=== PATIENT | male | born 2000 | race Caucasian/White ===

== ENCOUNTER 2022-03-25 19:04 | Emergency (ER) | payer BC, SELFPAY ==
[2022-03-25 19:24] VITALS: BP 122/66; PULSE 82; RESP 18; TEMP 36.6; O2SAT 99
--- NOTE | 2022-03-25 19:44 | ED.GENADULT ---
HPI - General Adult General Chief complaint: Ear Stated complaint: ear pain History of Present Illness HPI narrative: Patient is a 21-year-old male who presents to the urgent care via POV for evaluation of bilateral ear pain that has been present for approximately 2 to 3 weeks. Additionally, patient reports sinus congestion, sinus pain, sinus pressure, left eye erythema, watery drainage from left eye, nasal congestion, and fatigue. Patient seen in urgent care 4 days ago for symptoms. He was prescribed amoxicillin and prednisone for symptoms. Symptoms are not improving prompting today's visit. Denies known exposure to sick contacts. Related Data Home Medications Medication Instructions Recorded Confirmed amoxicillin 875 mg tablet 875 tablet BID 03/25/22 03/25/22 beclomethasone dipropionate 40 1 inh inhalation DIRECTED 03/25/22 03/25/22 mcg/actuation HFA breath activated aerosol (Qvar RediHaler) olopatadine 0.6 % nasal spray 2 spray intranasal DIRECTED 03/25/22 03/25/22 (Patanase) prednisone 20 mg tablet 1 tablet DIRECTED 03/25/22 03/25/22 Allergies Allergy/AdvReac Type Severity Reaction Status Date / Time No Known Allergies Allergy Verified 03/25/22 19:35 Review of Systems Review of Systems: Denies fever, chills, sweats, severe persistent headaches, dizziness, confusion, LOC, abdominal pain, nausea, vomiting, diarrhea, cough, shortness of breath, wheezing, chest pain, heart palpitations PMFSH Comments I have reviewed and agree with the patient's past medical, surgical, social, and family hx as documented by the RN. There is no relevant family history pertinent to the presenting complaint. Exam Narrative: GENERAL: Well-appearing, well-nourished, and in no acute distress. HEAD: Normocephalic, atraumatic. No sinus tenderness or facial swelling appreciated. EYES: PERRLA and EOMI. No evidence of swelling or drainage. Left conjunctive a moderately erythematous. Right conjunctive a normal. ENT: Bilateral external ears and ear canals normal. Bilateral TMs bulging with marked erythema..No TM perforation. Nares clear, no rhinorrhea or epistaxis. Bilateral turbinates are moderately edematous. Mucous membranes moist and pink. Uvula is midline without erythema and swelling. No evidence of petechial rash, cobblestoning, lesions, ulcers, erythema, swelling, exudates, peritonsillar abscess, tenting, or drooling. Breath odor and voice normal. NECK: Supple. No Lymphadenopathy or nuchal rigidity appreciated. CHEST: Bilateral lung mauricio are clear to auscultation. No respiratory distress. No evidence of cough or pleuritic cp upon examination. HEART: Regular rate and rhythm. No murmur, gallop, or rub heard. EXTREMITIES: Normal range of motion. No edema. SKIN: Warm, dry, no rash. NEURO: No focal deficits. Alert and oriented x3. Course Course Level of Care: Express Care Visit Vital Signs Vital signs: Vital Signs Temperature 97.8 F 03/25/22 19:24 Pulse Rate 82 03/25/22 19:24 Respiratory Rate 18 03/25/22 19:24 Blood Pressure 122/66 03/25/22 19:24 Pulse Oximetry 99 03/25/22 19:24 Oxygen Delivery Room Air 03/25/22 19:24 Temperature 97.8 F 03/25/22 19:24 Pulse Rate 82 03/25/22 19:24 Respiratory Rate 18 03/25/22 19:24 Blood Pressure 122/66 03/25/22 19:24 Pulse Oximetry 99 03/25/22 19:24 Oxygen Delivery Room Air 03/25/22 19:24 Medical Decision Making Differential Diagnosis Differential Diagnosis: Allergic rhinitis, ABRS, acute viral sinusitis, strep pharyngitis, nasopharyngitis, bronchitis, pneumonia, AOM, otitis externa, viral URI, influenza, covid-19 Medical Records Medical records reviewed: Yes I reviewed the external patient's medical records. Vital Signs Vital Signs: Vital Signs Temperature 97.8 F 03/25/22 19:24 Pulse Rate 82 03/25/22 19:24 Respiratory Rate 18 03/25/22 19:24 Blood Pressure 122/66 03/25/22 19:24 Pulse Oximetry 99
== END 2022-03-25 19:57 | disposition home or self-care (01) ==
PROVIDERS: Emergency Provider Nurse Practitioner Family
DX: H66.93 Otitis media, unspecified, bilateral (principal); H10.9 Unspecified conjunctivitis; J45.909 Unspecified asthma, uncomplicated
CPT/HCPCS: 99202; G0463

== ENCOUNTER 2023-04-20 17:39 | Emergency (ER) | payer BC, SELFPAY ==
[2023-04-20 18:00] VITALS: BP 134/66; PULSE 81; RESP 18; TEMP 37; O2SAT 97
--- NOTE | 2023-04-20 18:12 | ED.UPPEXIN ---
HPI - Extremity Injury (Upper) General Chief Complaint: Extremity Injury, Upper Stated Complaint: rt arm pain Time Seen by Provider: 04/20/23 18:00 Source: patient Mode of arrival: ambulatory Limitations: no limitations History of Present Illness HPI narrative: 22-year-old male presents with bruising and swelling to right upper arm. Reports that he was wrestling with friends the other night but does not remember having any pain while wrestling. States the next day he was lifting weights and felt pain to his right upper arm. Several hours later he noticed bruising and swelling. Continue to have full range of motion to right arm but felt like over stretching muscle when extending right arm. lifted weights again the next day, was able to complete his work out but had pain during. He has full range of motion to his right arm. No numbness or tingling. Reports that his mother wanted him to be seen due to the bruising and swelling. All systems reviewed and negative except as noted above. Related Data Home Medications Medication Instructions Recorded Confirmed beclomethasone dipropionate 40 1 inh inhalation DIRECTED 03/25/22 04/20/23 mcg/actuation HFA breath activated aerosol (Qvar RediHaler) olopatadine 0.6 % nasal spray 2 spray intranasal DIRECTED 03/25/22 04/20/23 (Patanase) Allergies Allergy/AdvReac Type Severity Reaction Status Date / Time No Known Allergies Allergy Verified 04/20/23 17:57 Review of Systems Review of Systems: CONSTITUTIONAL: Denies fever, chills, or sweats. EYES: Denies visual changes, redness, or discharge. ENT: Denies rhinorrhea, congestion, sore throat, or otalgia. CARDIOVASCULAR: Denies chest pain, palpitations, or edema. RESPIRATORY: Denies cough or dyspnea. GASTROINTESTINAL: Denies abdominal pain, nausea, vomiting, or diarrhea. GENITOURINARY: Denies dysuria or hematuria. SKIN: Denies rash or itching. MUSCULOSKELETAL: Reports bruising, swelling and pain to right upper arm. NEUROLOGIC: Denies headache, numbness, or weakness. PSYCHIATRIC: Denies anxiety or depression. All other systems reviewed are negative, except as documented in HPI. [facility] Comments At time of signature, agree with nursing past medical, surgical, social and family history. There is no relevant family history pertinent to the presenting complaint. Exam Narrative: GENERAL: This is a well-nourished, well-developed patient, in no apparent distress. HEAD: normocephalic, atraumatic. EYES: PERRL. Sclera clear/white. Vision is grossly intact. EARS: External ears normal NOSE: External nose normal NECK: Neck supple, non-tender without lymphadenopathy, masses or thyromegaly. CARDIOVASCULAR: Regular rate and rhythm without murmurs, gallops, or rubs. RESPIRATORY: Clear to auscultation. Breath sounds equal bilaterally. No wheezes, rales, or rhonchi. SKIN: warm, Dry, intact with no suspicious lesions or rash, good texture and turgor. NEURO: awake, alert, and oriented to person, place and time. There were no obvious focal neurologic abnormalities. EXTREMITIES: full ROM to R upper extremity. Bruising noted to medial aspect right elbow with tenderness on palpation. mild swelling noted to medial aspect right arm with tenderness. Course Course Level of Care: Express Care Visit Vital Signs Vital signs: Vital Signs Temperature 37.0 C 04/20/23 18:00 Pulse Rate 81 04/20/23 18:00 Respiratory Rate 18 04/20/23 18:00 Blood Pressure 134/66 04/20/23 18:00 Pulse Oximetry 97 04/20/23 18:00 Oxygen Delivery Room Air 04/20/23 18:00 Temperature 37.0 C 04/20/23 18:00 Pulse Rate 81 04/20/23 18:00 Respiratory Rate 18 04/20/23 18:00 Blood Pressure 134/66 04/20/23 18:00 Pulse Oximetry 97 04/20/23 18:00 Oxygen Delivery Room Air 04/20/23 18:00 reviewed MDM - Extremity Injury (Upper) MDM Narrative Medical decision making narrative: location of bruising, pain and
== END 2023-04-20 18:14 | disposition home or self-care (01) ==
PROVIDERS: Emergency Provider Nurse Practitioner Family
DX: S46.301A Unspecified injury of muscle, fascia and tendon of triceps, right arm, initial encounter (principal); X50.3XXA Overexertion from repetitive movements, initial encounter; J45.909 Unspecified asthma, uncomplicated
CPT/HCPCS: 99212; G0463

== ENCOUNTER 2024-08-29 14:34 | Emergency (ER) | payer BC, SELFPAY ==
--- NOTE | 2024-08-29 14:38 | ED_ITS ---
HPI - URI/Sore Throat General Chief Complaint: Upper Respiratory Infection Stated Complaint: sinus congestion Time Seen by Provider: 08/29/24 14:49 Source: patient, RN notes reviewed and old records reviewed Mode of arrival: ambulatory Limitations: no limitations History of Present Illness HPI Narrative: 23-year-old male presents to the [facility] with sinus congestion for 5 days. Reports using Mucinex, taking his daily allergy medication. Denies fevers. States the 1st couple of days he had a sore throat which has improved. Treatments prior to arrival: cold medicine Related Data Home Medications Medication Instructions Recorded Confirmed beclomethasone dipropionate 40 1 inh inhalation DIRECTED 03/25/22 08/29/24 mcg/actuation HFA breath activated aerosol (Qvar RediHaler) olopatadine 0.6 % nasal spray 2 spray intranasal DIRECTED 03/25/22 08/29/24 (Patanase) albuterol sulfate 90 mcg/actuation 2 puff inhalation PRN PRN 08/29/24 08/29/24 aerosol inhaler Shortness Of Breath Or Wheezing Allergies Allergy/AdvReac Type Severity Reaction Status Date / Time No Known Allergies Allergy Verified 08/29/24 14:37 Review of Systems Review of Systems: All systems reviewed & are unremarkable except as noted in HPI and below Constitutional: Constitutional: Reports no additional constitutional complaints ENT: Reports as per HPI Cardiovascular: Cardiovascular: Reports no additional cardiovascular complaints, Denies chest pain and Denies dyspnea Respiratory: Respiratory: Reports no additional respiratory complaints, Denies chest congestion, Denies cough and Denies dyspnea Gastrointestinal: Gastrointestinal: Reports no additional gastrointestinal complaints, Denies abdominal pain, Denies nausea and Denies vomiting Musculoskeletal: Musculoskeletal: Reports no additional musculoskeletal complaints Integumentary/Breasts: Skin/Breast: Reports system reviewed and no additional complaints, except as docu PMFSH Comments At the time of my signature, I reviewed and agree with the nursing past medical, surgical, social, and family history. There is no relevant family history pertinent to the patient complaint. Exam Const: General: cooperative, healthy appearing, comfortable, no acute distress, well developed, alert and well nourished Nutritional Appearance: well nourished Orientation/consciousness: patient oriented x3 Limitations: no limitations HENMT: Head: normal to inspection Ears: hearing grossly normal bilaterally and external ears normal Face/Nose/Sinus: Normal external nose present, Nasal discharge present clear bilateral, normal facial exam and face symmetric Face and sinus: normal facial exam, sinuses nontender and face symmetric Mouth: Yes Normal oral and palatal mucosa present, Yes lip normal and Yes tongue normal Throat: uvula midline, postnasal drainage and no uvular edema Eyes: General: appearance normal, both eyes and all related structures Alignment and Position: alignment normal Periorbital: periorbital findings normal Neck: Neck: normal visual inspection, full ROM, no lymphadenopathy and no meningeal signs Chest: Chest palpation & inspection: normal inspection of the chest Resp: Effort & Inspection: normal respiratory effort and able to speak in complete sentences Auscultation: clear to auscultation bilaterally, no crackles, no rales, no rhonchi and no wheezes Cardio: Rate: regular rate Skin: General skin exam: normal color and no rashes or lesions noted Lesions: no lesions Rashes: no rashes Wounds: no wounds Neuro: General: patient oriented x3, gait normal, tone normal, moves all extremities and no meningeal signs Cognition (Neuro): normal cognition Speech: normal speech Gait exam (Neuro): Normal gait present Extrem: General: normal to inspection, full ROM, capillary refill normal and normal gait Psych: Appearance: grossly normal and well kempt Mental Status: mental status grossly normal Speech and movement: Normal speech and movement present and Clear speech present Affect: normal affect Attitude: cooperative Course Course Level of Care: Express Care Visit Vital Signs Vital signs: Vital Signs Temperature 99.2 F 08/29/24 14:48 Pulse Rate 89 08/29/24 14:48 Respiratory Rate 17 08/29/24 14:48 Blood Pressure 129/64 08/29/24 14:48 Pulse Oximetry 98 08/29/24 14:48 Oxygen Delivery Room Air 08/29/24 14:48 Temperature 99.2 F 08/29/24 14:48 Pulse Rate 89 08/29/24 14:48 Respiratory Rate 17 08/29/24 14:48 Blood Pressure 129/64 08/29/24 14:48 Pulse Oximetry 98 08/29/24 14:48 Oxygen Delivery Room Air 08/29/24 14:48 Reviewed MDM - URI/Sore Throat MDM Narrative Medical decision making narrative: Patient sitting comfortably in exam room. Nontoxic, vitals stable. Patient in no acute distress. Patient presents with 5 day history of sinus congestion, sinus pressure. Patient appropriate for outpatient treatment follow-up of viral sinusitis Discharge instructions reviewed with patient, as well as provided in writing per nursing staff. The instructions also include specific and strict return/GO TO THE ER as well as f/u information. All questions have been answered, and the patient deny any further questions with discharge and discharge plan. Some parts of this dictation were generated by voice recognition software and may contain typographical and/or grammatical inaccuracies. Differential Diagnosis Differential diagnosis: Likely upper respiratory infection, otitis media, sinusitis and viral infection Critical Care Time Critical Care Time Critical Care Time: No Discharge Plan Discharge Clinical Impression: Post-nasal drainage Sinusitis Qualifiers: Sinusitis location: pansinusitis Chronicity: acute Recurrence: not specified as recurrent Qualified Code(s): J01.40 - Acute pansinusitis, unspecified Patient Disposition: Home, Self-Care Condition: Stable Instructions: Antibiotic Form, Sinusitis (ED) Additional Instructions: -Alternate Tylenol and Motrin per package directions for fever or pain. -Antihistamine medication such as Benadryl at night and Zyrtec/Claritin/Kristel during the day can help improve symptoms. -doing daily nasal irrigations can help relieve pressure your sinuses. Things like a Neti pot -Use Flonase twice a day for 5 days then daily to help reduce the inflammation and dry up your sinuses. -You can also use Mucinex. Be sure to drink plenty of water with this medication at least 8 ounces with every dose and it is important to drink 8 to 10 glasses of water per day. Water is a natural decongestant -Eat and drink things that are easy to swallow, like tea or soup, or popsicles. -Oral rinses such as: Salt water gargles and/or may use topical anesthetic (eg. Chloraseptic spray) or lozenges to relieve dryness or throat pain). -Frequent hand washing or hand senior foreman is one of the best ways to prevent spread of infection. -Using a vaporizer or humidifier at night will also help thin secretions and help with coughing up phlegm. -Follow up with primary care provider in 7-10 days if condition is not improving - For new or worsening symptoms go directly to the nearest ER Patient Language: Croatian Prescriptions: New methylprednisolone [Methylpred DP] 4 mg tablets,dose pack See Rx Instructions PO .COMPLEX Qty: 21 0RF Rx Instructions: orally per package directions No Action olopatadine [Patanase] 0.6 % Richardson,Non-Aerosol 2 spray INTRANASAL DIRECTED Rx Instructions: administer into each nostril Qvar RediHaler 40 mcg/actuation HFA aerosol breath activated 1 inh INHALATION DIRECTED albuterol sulfate 90 mcg/actuation HFA aerosol inhaler 2 puff INHALATION PRN PRN (Reason: Shortness Of Breath Or Wheezing) Follow-up/Referrals: UNKNOWN,DOCTOR [Non-Staff] - Stand Alone Forms: Work/School Release IP Time of Disposition: 14:55
[2024-08-29 14:48] VITALS: BP 129/64; PULSE 89; RESP 17; TEMP 37.3; O2SAT 98
== END 2024-08-29 14:58 | disposition home or self-care (01) ==
PROVIDERS: Emergency Provider Nurse Practitioner
DX: R09.82 Postnasal drip (principal); J01.40 Acute pansinusitis, unspecified; J45.909 Unspecified asthma, uncomplicated; Z86.16 Personal history of COVID-19
CPT/HCPCS: 99213; G0463